=== PATIENT | female | born 1970 | race Caucasian/White ===

== ENCOUNTER 2022-10-06 07:46 | Inpatient (IN) | payer OTHER ==
[2022-10-06] MEDS ORDERED: KETOROLAC 15 MG/ML 1 ML VIAL IVP STA (08:07)
[2022-10-06] MEDS ORDERED: SODIUM CHLORIDE 0.9% 1,000 ML IV STA ×2 (08:07→09:43)
[2022-10-06] MEDS ORDERED: MORPHINE SULFATE 2 MG/ML SYRINGE IVP STA (08:07)
[2022-10-06] MEDS ORDERED: ONDANSETRON 4 MG/2 ML VIAL IVP STA (08:07)
--- NOTE | 2022-10-06 08:13 | ED ---
Abdominal Pain HPI - General Chief Complaint: Abdominal Pain Stated Complaint: Abd pain Time Seen by Provider: 10/06/22 07:56 Source: patient, RN notes reviewed Mode of arrival: ambulatory Limitations: no limitations - History of Present Illness Initial Comments: This is a 52-year-old female who presents to the emergency department for abdominal pain. States that this is in the epigastric region has been present over the last 3 days. She has associated nausea and vomiting. States that she is unable to sleep at night. Last night she took 1500mg of Tylenol with no relief in symptoms. She had a similar problem approximately 3 weeks ago that resolved on its own. She does have a family history of gallstones. She also notes that she changed her diet about a month ago and it is now higher in fat. States that the vomit is primarily bile. Denies any blood in the vomit, diarrhea, or constipation. Denies any fevers, chills, sore throat, cough, dyspnea, chest pain, palpitations, diarrhea, back pain, or headaches. MD Complaint: abdominal pain Onset/Timin -: days(s) Location: RUQ, epigastric Associated Symptoms: nausea, vomiting - Related Data Home Medications Medication Instructions Recorded Confirmed No Known Home Medications 10/06/22 10/06/22 Allergies Allergy/AdvReac Type Severity Reaction Status Date / Time amoxicillin Allergy Anaphylaxis Verified 10/06/22 10:13 Penicillins Allergy Anaphylaxis Verified 10/06/22 10:13 Review of Systems ROS Statement: Those systems with pertinent positive or pertinent negative responses have been documented in the HPI. ROS Other: All systems not noted in ROS Statement are negative. Past Medical History Past Medical History: No Reported History History of Any Multi-Drug Resistant Organisms: None Reported Past Surgical History: No Surgical Hx Reported Past Psychological History: No Psychological Hx Reported Smoking Status: Vaper Past Alcohol Use History: None Reported Past Drug Use History: None Reported General Exam Limitations: no limitations General appearance: alert, in distress Head exam: Present: atraumatic, normocephalic, normal inspection Respiratory exam: Present: normal lung sounds bilaterally. Absent: respiratory distress, wheezes, rales, rhonchi, stridor Cardiovascular Exam: Present: regular rate, normal rhythm, normal heart sounds. Absent: systolic murmur, diastolic murmur, rubs, gallop, clicks GI/Abdominal exam: Present: soft, tenderness (Epigastric, worse in the RUQ), normal bowel sounds. Absent: distended Neurological exam: Present: alert, oriented X3, CN II-XII intact Psychiatric exam: Present: normal affect, normal mood Skin exam: Present: warm, dry, intact, normal color. Absent: rash Course Vital Signs 10/06/22 07:50 Temperature 98.4 F Pulse Rate 70 Respiratory 20 Rate Blood Pressure 128/84 O2 Sat by Pulse 99 Oximetry Medical Decision Making - Medical Decision Making This is a 52-year-old female who presents to the emergency department for abdominal pain. Was pt. sent in by a medical professional or institution? @ -No Did you speak to anyone other than the patient for history? @ -Her friend Did you review nursing and triage notes? @ -Yes, and I agree, it is accurate with regards to the patient's symptoms. Were old charts reviewed? @ -No Differential Diagnosis? @ -Differential Abdominal Pain Women: Appendicitis, Cholecystitis, diverticulosis, ischemic bowel, pancreatitis, hepatitis, UTI, gastroenteritis, AAA, incarcerated hernia, bowel obstruction, constipation, inflammatory bowel, hepatitis, peptic ulcer disease, splenic infarction, perforated viscus, vulvitis, ovarian torsion, PID, kidney stone, placenta abruption, this is not meant to be an all-inclusive list EKG interpreted by me (1pt min.)? @ -Sinus rhythm. Ventricular rate 61 bpm, HI interval 141 ms, QRS duration 98 ms, QTC 433 ms. U/S interpreted by me (1pt. min.)? @ -Ultrasound of the gallbladder obtained. My interpretation identifies gallbladder wall thickening and sludge. What testing was considered but not performed? (CT, X-rays, U/S, labs)? Why? @ -None What meds were considered but not given? Why? @ -None Did you discuss the management of the patient with other professionals? @ -Yes, Dr. Pérez who is agreeable to admission. Did you reconcile home meds? @ -No Was smoking cessation discussed for >3mins.? @ -No Was critical care preformed (if so, how long)? @ -No Were there social determinants of health that impacted care today? How? (Homelessness, low income, unemployed, alcoholism, drug addiction, transportation, low edu. Level, literacy, decrease access to med. care, prison, rehab)? @ -No Was there de-escalation of care discussed even if they declined? (Discuss DNR or withdrawal of care, Hospice)? @ -No What co-morbidities impacted this encounter? (DM, HTN, Smoking, COPD, CAD, Cancer, CVA, Hep., AIDS, mental health diagnosis, sleep apnea, morbid obesity)? @ -Morbid obesity Was patient admitted / discharged? @ -Lab work obtained revealing leukocytosis and a minor increase in alkaline phosphatase. Symptoms well controlled with IV fluids, Zofran, Toradol, and Morphine. Ultrasound of the gallbladder obtained and findings consistent with an acute cholecystitis. They were unable to rule out an early biliary obstruction and advised correlation with alkaline phosphatase. Case discussed with Dr. Pérez, who is agreeable to admission given that she only has a minor elevation in alkaline phosphatase. Patient admitted to general surgery with plan for surgical intervention. She was started on maintenance fluids, Levaquin, and Flagyl due to penicillin allergy. Blood cultures were obtained prior to antibiotic administration. Undiagnosed new problem with uncertain prognosis? @ -None Drug Therapy requiring intensive monitoring for toxicity (Heparin, Nitro, Insulin, Cardizem)? @ -None Were any procedures done? @ -None Diagnosis/symptom? @ -Acute cholecystitis Acute, or Chronic, or Acute on Chronic? @ -Acute Uncomplicated (without systemic symptoms) or Complicated (systemic symptoms)? @ -Complicated Side effects of treatment? @ -None Exacerbation, Progression, or Severe Exacerbation] @ -Not applicable Poses a threat to life or bodily function? @ -Yes This case was discussed in detail with the attending ED physician, Dr. العراقي. Presentation, findings, and treatment plan discussed in detail as well. - Lab Data Result diagrams: 10/06/22 08:30 10/06/22 08:30 Lab Results 10/06/22 10/06/22 10/06/22 Range/Units 08:30 08:30 08:30 WBC 15.2 H (3.8-10.6) k/uL RBC 4.57 (3.80-5.40) m/uL Hgb 13.9 (11.4-16.0) gm/dL Hct 43.1 (34.0-46.0) % MCV 94.3 (80.0-100.0) fL MCH 30.4 (25.0-35.0) pg MCHC 32.3 (31.0-37.0) g/dL RDW 13.2 (11.5-15.5) % Plt Count 284 (150-450) k/uL MPV 10.6 Neutrophils % 88 % Lymphocytes % 5 % Monocytes % 5 % Eosinophils % 1 % Basophils % 0 % Neutrophils # 13.4 H (1.3-7.7) k/uL Lymphocytes # 0.8 L (1.0-4.8) k/uL Monocytes # 0.8 (0-1.0) k/uL Eosinophils # 0.1 (0-0.7) k/uL Basophils # 0.1 (0-0.2) k/uL PT 10.8 (9.0-12.0) sec INR 1.0 (<1.2) APTT 24.1 (22.0-30.0) sec Sodium (137-145) mmol/L Potassium (3.5-5.1) mmol/L Chloride (98-107) mmol/L Carbon Dioxide (22-30) mmol/L Anion Gap mmol/L BUN (7-17) mg/dL Creatinine (0.52-1.04) mg/dL Est GFR (CKD-EPI)AfAm (>60 ml/min/1.73 sqM) Est GFR (CKD-EPI)NonAf (>60 ml/min/1.73 sqM) Glucose (74-99) mg/dL Plasma Lactic Acid Tray (0.7-2.0) mmol/L Calcium (8.4-10.2) mg/dL Total Bilirubin (0.2-1.3) mg/dL AST (14-36) U/L ALT (4-34) U/L Alkaline Phosphatase (38-126) U/L Troponin I (0.000-0.034) ng/mL Total Protein (6.3-8.2) g/dL Albumin (3.5-5.0) g/dL Amylase (30-110) U/L Lipase (23-300) U/L Urine Color Yellow Urine Appearance Clear (Clear) Urine pH 5.5 (5.0-8.0) Ur Specific [place] 1.035 (1.001-1.035) Urine Protein 1+ H (Negative) Urine Glucose (UA) Negative (Negative) Urine Ketones 4+ H (Negative) Urine Blood Negative (Negative) Urine Nitrite Negative (Negative) Urine Bilirubin Negative (Negative) Urine Urobilinogen 2.0 (<2.0) mg/dL Ur Leukocyte Esterase Negative (Negative) Urine RBC 2 (0-5) /hpf Urine WBC 2 (0-5) /hpf Ur Squamous Epith Cells 5 H (0-4) /hpf Urine Bacteria Rare H (None) /hpf Hyaline Casts 28 H (0-2) /lpf Urine Mucus Many H (None) /hpf 10/06/22 10/06/22 10/06/22 Range/Units 08:30 08:30 08:30 WBC (3.8-10.6) k/uL RBC (3.80-5.40) m/uL Hgb (11.4-16.0) gm/dL Hct (34.0-46.0) % MCV (80.0-100.0) fL MCH (25.0-35.0) pg MCHC (31.0-37.0) g/dL RDW (11.5-15.5) % Plt Count (150-450) k/uL MPV Neutrophils % % Lymphocytes % % Monocytes % % Eosinophils % % Basophils % % Neutrophils # (1.3-7.7) k/uL Lymphocytes # (1.0-4.8) k/uL Monocytes # (0-1.0) k/uL Eosinophils # (0-0.7) k/uL Basophils # (0-0.2) k/uL PT (9.0-12.0) sec INR (<1.2) APTT (22.0-30.0) sec Sodium 135 L (137-145) mmol/L Potassium 4.3 (3.5-5.1) mmol/L Chloride 97 L (98-107) mmol/L Carbon Dioxide 23 (22-30) mmol/L Anion Gap 15 mmol/L BUN 9 (7-17) mg/dL Creatinine 0.44 L (0.52-1.04) mg/dL Est GFR (CKD-EPI)AfAm >90 (>60 ml/min/1.73 sqM) Est GFR (CKD-EPI)NonAf >90 (>60 ml/min/1.73 sqM) Glucose 140 H (74-99) mg/dL Plasma Lactic Acid Tray 1.5 (0.7-2.0) mmol/L Calcium 9.5 (8.4-10.2) mg/dL Total Bilirubin 0.9 (0.2-1.3) mg/dL AST 28 (14-36) U/L ALT 30 (4-34) U/L Alkaline Phosphatase 144 H (38-126) U/L Troponin I <0.012 (0.000-0.034) ng/mL Total Protein 7.4 (6.3-8.2) g/dL Albumin 4.2 (3.5-5.0) g/dL Amylase 71 (30-110) U/L Lipase 88 (23-300) U/L Urine Color Urine Appearance (Clear) Urine pH (5.0-8.0) Ur Specific [place] (1.001-1.035) Urine Protein (Negative) Urine Glucose (UA) (Negative) Urine Ketones (Negative) Urine Blood (Negative) Urine Nitrite (Negative) Urine Bilirubin (Negative) Urine Urobilinogen (<2.0) mg/dL Ur Leukocyte Esterase (Negative) Urine RBC (0-5) /hpf Urine WBC (0-5) /hpf Ur Squamous Epith Cells (0-4) /hpf Urine Bacteria (None) /hpf Hyaline Casts (0-2) /lpf Urine Mucus (None) /hpf - Radiology Data Radiology results: report reviewed, image reviewed Disposition Clinical Impression: Acute cholecystitis Disposition: ADMITTED IP TO THIS [facility] Referrals: None,Stated [Primary Care Provider] - 1-2 days
[2022-10-06 08:57] LABS: Basophils # (A) 0.1 k/uL (0-0.2); Basophils % (A) 0 %; Eosinophils # (A) 0.1 k/uL (0-0.7); Eosinophils % (A) 1 %; HCT 43.1 % (34.0-46.0); HGB 13.9 gm/dL (11.4-16.0); Lymphocytes # (A) 0.8 k/uL (1.0-4.8); Lymphocytes % (A) 5 %; MCH 30.4 pg (25.0-35.0); MCHC 32.3 g/dL (31.0-37.0); MCV 94.3 fL (80.0-100.0); Mean Platelet Volume 10.6; Monocytes # (A) 0.8 k/uL (0-1.0); Monocytes % (A) 5 %; Neutrophils # (A) 13.4 k/uL (1.3-7.7); Neutrophils % (A) 88 %; Platelet Count 284 k/uL (150-450); RBC 4.57 m/uL (3.80-5.40); RDW 13.2 % (11.5-15.5); WBC 15.2 k/uL (3.8-10.6)
[2022-10-06 09:15] LABS: ALT 30 U/L (4-34); AST 28 U/L (14-36); African American GFR (CKD) >90 (>60 ml/min/1.73 sqM); Albumin 4.2 g/dL (3.5-5.0); Alkaline Phosphatase 144 U/L (38-126); Amylase 71 U/L (30-110); Anion Gap 15 mmol/L; Blood Urea Nitrogen 9 mg/dL (7-17); Calcium 9.5 mg/dL (8.4-10.2); Carbon Dioxide 23 mmol/L (22-30); Chloride 97 mmol/L (98-107); Glucose 140 mg/dL (74-99); Lipase 88 U/L (23-300); Non-African American GFR(CKD) >90 (>60 ml/min/1.73 sqM); Partial Thromboplastin Time 24.1 sec (22.0-30.0); Potassium 4.3 mmol/L (3.5-5.1); Prothrombin Time 10.8 sec (9.0-12.0); Sodium 135 mmol/L (137-145); Total Bilirubin 0.9 mg/dL (0.2-1.3); Total Protein 7.4 g/dL (6.3-8.2)
--- NOTE | 2022-10-06 09:32 | US ---
EXAMINATION TYPE: US gallbladder DATE OF EXAM: 10/06/2022 COMPARISON: NONE CLINICAL HISTORY: 52-year-old female Epigastric pain, N/V. Intermittent RUQ pain and N/V x 3 months t hat has gotten worse in the past 3 days TECHNIQUE: Multiple sonographic images of the right upper quadrant are obtained. FINDINGS: EXAM MEASUREMENTS: Liver Length: 12.9 cm Gallbladder Wall: 1.1 cm CBD: 0.7 cm Right Kidney: 10.9 x 5.1 x 4.7 cm Pancreas: Only a small portion of the pancreatic head and neck are seen. Remainder obscured by bowel gas shadowing. Liver: wnl Gallbladder: borderline hydropic, thickened heterogeneous wall with calcifications and some vascular ity, sludge and a 2.1cm non mobile stone seen within neck Evidence for sonographic Tony's sign: yes CBD: dilated Right Kidney: wnl IMPRESSION: 1. Thickened and edematous gallbladder wall. There is sludge and an impacted 2.1 cm stone at the neck of the gallbladder. Sonographic Tony's sign is reportedly positive. Sonographic findings compatibl e with acute cholecystitis. 2. Either concurrent adenomyomatosis versus gallbladder wall calcification/porcelain gallbladder sigala ges. 3. Bile duct is borderline to mildly dilated at 7 mm. Correlate with alkaline phosphatase and bilirub in levels to exclude early biliary obstruction.
[2022-10-06] MEDS ORDERED: ONDANSETRON 4 MG/2 ML VIAL IVP PRN (09:50)
[2022-10-06] MEDS ORDERED: NALOXONE 0.4 MG/ML 1 ML VIAL IV PRN (09:50)
[2022-10-06] MEDS ORDERED: IBUPROFEN 400 MG TAB PO PRN (09:50)
[2022-10-06] MEDS ORDERED: ACETAMINOPHEN TAB 325 MG TAB PO PRN (09:50)
[2022-10-06 10:00] LABS: Appearance,Urine Clear (Clear); Bacteria,Urine Rare /hpf; Bilirubin,Urine Negative (Negative); Blood,Urine Negative (Negative); Color,Urine Yellow; Glucose,Urine (UA) Negative (Negative); Hyaline Casts,Urine 28 /lpf (0-2); Ketones,Urine 4+ (Negative); Leukocyte Esterase,Urine Negative (Negative); Mucus,Urine Many /hpf; Nitrite,Urine Negative (Negative); PH, Urine 5.5 (5.0-8.0); Protein,Urine 1+ (Negative); RBC,Urine 2 /hpf (0-5); Specific Gravity,Urine 1.035 (1.001-1.035); Squamous Epithelial Cell,Urine 5 /hpf (0-4); WBC,Urine 2 /hpf (0-5)
[2022-10-06] MEDS: HYDROmorphone 1 MG/ML 1 ML SYRINGE IVP PRN (10:29)
[2022-10-06] MEDS: metroNIDAZOLE-NS PMX 500 MG in SALINE 1 100ML.BAG IVPB SCH ×2 (10:30→18:03)
[2022-10-06] MEDS: LEVOFLOXACIN 750MG-D5W PMX 750 MG in DEXTROSE/WATER 1 150ML.BAG IVPB SCH (11:40)
--- NOTE | 2022-10-06 11:49 | P.GSHP ---
History of Present Illness H&P Date: 10/06/22 CHIEF COMPLAINT: Abdominal pain HISTORY OF PRESENT ILLNESS: This is a 52-year-old presented with right upper quadrant and epigastric abdominal pain for the last 3 days. She has been having nausea and vomiting. The emesis was bile in color. Patient reports that she has had 2 other episodes of similar pain starting 3 weeks ago. She's had chills and sweats. Denies any fever. Gallbladder bladder ultrasound shows thickened and edematous gallbladder wall. There is sludge and an impacted 2.1 cm stone at the neck of the gallbladder. With positive Tony sign. Patient admitted to the hospital for acute cholecystitis. She has been started on antibiotics. White count elevated. She denies any past surgical history. Denies any cardiac history. Patient reports her pain is better with the IV Dilaudid. PAST MEDICAL HISTORY: See below PAST SURGICAL HISTORY: See below MEDICATIONS: See below ALLERGIES: See below SOCIAL HISTORY: No illicit drug use. Vaping REVIEW OF SYSTEMS: CONSTITUTIONAL: Denies fever or chills. HEENT: Denies blurred vision, vision changes, or eye pain. Denies hemoptysis CARDIOVASCULAR: Denies chest pain or pressure. RESPIRATORY: No shortness of breath. GASTROINTESTINAL: See HPI for pertinent findings HEMATOLOGIC: Denies bleeding disorders. GENITOURINARY: Denies any blood in urine or increased urinary frequency. SKIN: Denies pruitis. Denies rash. PHYSICAL EXAM: VITAL SIGNS: Reviewed GENERAL: Well-developed in no acute distress. HEENT: No sclera icterus. Extraocular movements grossly intact. Moist buccal mucosa. Head is atraumatic, normocephalic. No nasal drainage. ABDOMEN: Soft. Nondistended. Tenderness to palpation right upper quadrant NEUROLOGIC: Alert and oriented. Cranial nerves II through XII grossly intact. LABORATORY DATA: WBC is 15.2 Hgb 13.9 platelets 284 Sodium is 135 potassium 4.3 creatinine 0.44 Lactic acid 1.5 total bili 0.9 AST 28 ALT 30 alk phos 144 Lipase 88 Troponin negative Urinalysis negative for infection IMAGING: Gallbladder ultrasound shows thickened and edematous gallbladder wall. There is sludge in an impacted 2.1 cm stone at the neck of the gallbladder. Positive Tony sign. Sonographic findings are compatible with acute cholecystitis. Either concurrent adenomyomatosis versus gallbladder wall calcification/porcelain gallbladder changes. Bile duct is borderline mildly dilated at 7 mm. ASSESSMENT: 1. Acute cholecystitis PLAN: -Patient is scheduled for laparoscopic cholecystectomy tomorrow with Dr. gomez -Start clear liquid diet today -Nothing by mouth after midnight -Continue IV antibiotics -Continue IV fluids -Continue pain medicine and antiemetics as needed Physician Chin Strap Sewer note has been reviewed by physician. Signing provider agrees with the documented findings, assessment, and plan of care. Past Medical History Past Medical History: No Reported History History of Any Multi-Drug Resistant Organisms: None Reported Past Surgical History: No Surgical Hx Reported Past Psychological History: No Psychological Hx Reported Smoking Status: Vaper Past Alcohol Use History: None Reported Past Drug Use History: None Reported Medications and Allergies Home Medications Medication Instructions Recorded Confirmed Type No Known Home Medications 10/06/22 10/06/22 History Allergies Allergy/AdvReac Type Severity Reaction Status Date / Time amoxicillin Allergy Anaphylaxis Verified 10/06/22 10:13 Penicillins Allergy Anaphylaxis Verified 10/06/22 10:13 Surgical - Exam Vital Signs Temp Pulse Resp BP Pulse Ox 98.4 F 70 20 128/84 99 10/06/22 07:50 10/06/22 07:50 10/06/22 07:50 10/06/22 07:50 10/06/22 07:50 Results - Labs 10/06/22 08:30 10/06/22 08:30 Abnormal Lab Results - Last 24 Hours (Table) 10/06/22 10/06/22 10/06/22 Range/Units 08:30 08:30 08:30 WBC 15.2 H (3.8-10.6) k/uL Neutrophils # 13.4 H (1.3-7.7) k/uL Lymphocytes # 0.8 L (1.0-4.8) k/uL Sodium 135 L (137-145) mmol/L Chloride 97 L (98-107) mmol/L Creatinine 0.44 L (0.52-1.04) mg/dL Glucose 140 H (74-99) mg/dL Alkaline Phosphatase 144 H (38-126) U/L Urine Protein 1+ H (Negative) Urine Ketones 4+ H (Negative) Ur Squamous Epith Cells 5 H (0-4) /hpf Urine Bacteria Rare H (None) /hpf Hyaline Casts 28 H (0-2) /lpf Urine Mucus Many H (None) /hpf Diabetes panel 10/06/22 Range/Units 08:30 Sodium 135 L (137-145) mmol/L Potassium 4.3 (3.5-5.1) mmol/L Chloride 97 L (98-107) mmol/L Carbon Dioxide 23 (22-30) mmol/L BUN 9 (7-17) mg/dL Creatinine 0.44 L (0.52-1.04) mg/dL Glucose 140 H (74-99) mg/dL Calcium 9.5 (8.4-10.2) mg/dL AST 28 (14-36) U/L ALT 30 (4-34) U/L Alkaline Phosphatase 144 H (38-126) U/L Total Protein 7.4 (6.3-8.2) g/dL Albumin 4.2 (3.5-5.0) g/dL Calcium panel 10/06/22 Range/Units 08:30 Calcium 9.5 (8.4-10.2) mg/dL Albumin 4.2 (3.5-5.0) g/dL Pituitary panel 10/06/22 Range/Units 08:30 Sodium 135 L (137-145) mmol/L Potassium 4.3 (3.5-5.1) mmol/L Chloride 97 L (98-107) mmol/L Carbon Dioxide 23 (22-30) mmol/L BUN 9 (7-17) mg/dL Creatinine 0.44 L (0.52-1.04) mg/dL Glucose 140 H (74-99) mg/dL Calcium 9.5 (8.4-10.2) mg/dL Adrenal panel 10/06/22 Range/Units 08:30 Sodium 135 L (137-145) mmol/L Potassium 4.3 (3.5-5.1) mmol/L Chloride 97 L (98-107) mmol/L Carbon Dioxide 23 (22-30) mmol/L BUN 9 (7-17) mg/dL Creatinine 0.44 L (0.52-1.04) mg/dL Glucose 140 H (74-99) mg/dL Calcium 9.5 (8.4-10.2) mg/dL Total Bilirubin 0.9 (0.2-1.3) mg/dL AST 28 (14-36) U/L ALT 30 (4-34) U/L Alkaline Phosphatase 144 H (38-126) U/L Total Protein 7.4 (6.3-8.2) g/dL Albumin 4.2 (3.5-5.0) g/dL
[2022-10-06] MEDS: HYDROmorphone 0.5 MG/0.5 ML SYRINGE IVP PRN ×3 (13:43→22:13)
[2022-10-06] MEDS: LACTATED RINGERS 1,000 ML IV SCH (16:46)
[2022-10-07] MEDS: metroNIDAZOLE-NS PMX 500 MG in SALINE 1 100ML.BAG IVPB SCH ×3 (03:01→18:02)
[2022-10-07] MEDS: HYDROmorphone 0.5 MG/0.5 ML SYRINGE IVP PRN (03:27)
[2022-10-07 06:57] LABS: Basophils % (A) 0 %; Eosinophils % (A) 0 %; HCT 40.1 % (34.0-46.0); HGB 12.7 gm/dL (11.4-16.0); Lymphocytes # (A) 0.8 k/uL (1.0-4.8); Lymphocytes % (A) 6 %; MCH 30.3 pg (25.0-35.0); MCHC 31.6 g/dL (31.0-37.0); MCV 95.8 fL (80.0-100.0); Mean Platelet Volume 10.2; Monocytes % (A) 8 %; Neutrophils # (A) 10.5 k/uL (1.3-7.7); Neutrophils % (A) 85 %; Platelet Count 237 k/uL (150-450); RBC 4.18 m/uL (3.80-5.40); RDW 13.3 % (11.5-15.5); WBC 12.4 k/uL (3.8-10.6)
[2022-10-07 07:12] LABS: ALT 46 U/L (4-34); AST 43 U/L (14-36); African American GFR (CKD) >90 (>60 ml/min/1.73 sqM); Albumin 3.1 g/dL (3.5-5.0); Albumin/Globulin Ratio 1.1; Alkaline Phosphatase 125 U/L (38-126); Anion Gap 8 mmol/L; Blood Urea Nitrogen 5 mg/dL (7-17); Calcium 8.8 mg/dL (8.4-10.2); Carbon Dioxide 26 mmol/L (22-30); Chloride 101 mmol/L (98-107); Globulin 2.7 g/dL; Glucose 102 mg/dL (74-99); Non-African American GFR(CKD) >90 (>60 ml/min/1.73 sqM); Potassium 3.9 mmol/L (3.5-5.1); Sodium 135 mmol/L (137-145); Total Bilirubin 1.5 mg/dL (0.2-1.3); Total Protein 5.8 g/dL (6.3-8.2)
[2022-10-07] MEDS: HYDROmorphone 1 MG/ML 1 ML SYRINGE IVP PRN ×2 (07:48→11:18)
[2022-10-07] MEDS: SODIUM CHLORIDE 0.9% 1,000 ML IV SCH ×2 (09:13→16:38)
[2022-10-07] MEDS: LEVOFLOXACIN 750MG-D5W PMX 750 MG in DEXTROSE/WATER 1 150ML.BAG IVPB SCH (11:18)
[2022-10-07] MEDS ORDERED: IV FLUID CONTINUATION 1,000 ML IV ONE (12:05)
[2022-10-07] MEDS ORDERED: HEPARIN SODIUM,PORCINE/PF 5,000 UNIT/0.5 ML SYRINGE SQ ONE (12:36)
[2022-10-07] MEDS ORDERED: DEXAMETHASONE SOD PHOSPHATE 4 MG/ML 1 ML VIAL IVP ONE (12:38)
[2022-10-07] MEDS ORDERED: HEPARIN SODIUM,PORCINE 5,000 UNIT/ML 1 ML VIAL SQ ONE (12:39)
[2022-10-07] MEDS ORDERED: ONDANSETRON 4 MG/2 ML VIAL IVP ONE (12:39)
[2022-10-07] MEDS ORDERED: PROPOFOL 10 MG/ML 20 ML VIAL IV ONE (12:52)
[2022-10-07] MEDS ORDERED: PHENYLEPHRINE-0.9% NACL SYG 1,000 MCG/10 ML SYRINGE ONE (12:52)
[2022-10-07] MEDS ORDERED: fentaNYL (PF) 50 MCG/ML 2 ML AMP ONE (12:52)
[2022-10-07] MEDS ORDERED: LIDOCAINE 2% INJ 20 MG/ML (2 ML VIAL) ONE (12:52)
[2022-10-07] MEDS ORDERED: ROCURONIUM 10 MG/ML (5 ML VIAL) IV ONE (12:52)
[2022-10-07] MEDS ORDERED: GLYCOPYRROLATE 0.2 MG/ML 2 ML VIAL ONE (12:52)
[2022-10-07] MEDS ORDERED: SUCCINYLCHOLINE CHLORIDE 200 MG/10 ML VIAL IV ONE (12:52)
[2022-10-07] MEDS ORDERED: NEOSTIGMINE 1 MG/ML 10 ML VIAL ONE (12:52)
[2022-10-07] MEDS ORDERED: KETOROLAC 15 MG/ML 1 ML VIAL ONE (12:52)
[2022-10-07] MEDS ORDERED: BUPIVACAIN-EPI 0.25%-1:200,000 30 ML VIAL SQ ONE ×2 (12:52→13:11)
[2022-10-07] MEDS ORDERED: MIDAZOLAM 2 MG/2 ML VIAL ONE (12:52)
[2022-10-07] MEDS ORDERED: LACTATED RINGERS 1,000 ML IV ONE (13:33)
--- NOTE | 2022-10-07 13:52 | P.OP ---
Date of Procedure: 10/07/22 Preoperative Diagnosis: Acute cholecystitis Postoperative Diagnosis: Acute cholecystitis Cholelithiasis Patchy necrosis of the gallbladder Procedure(s) Performed: Laparoscopic cholecystectomy Anesthesia: VIC Surgeon: Derrick Pérez Estimated Blood Loss (ml): 25 Pathology: other (Gallbladder) Condition: stable Operative Findings: Severe inflammation of gallbladder with thickened gallbladder wall Description of Procedure: The patient was placed on the operating table. The patient received a general endotracheal tube anesthesia. The patients abdomen was prepped and draped in the usual sterile fashion. Through an infraumbilical stab incision, the fascia of the anterior abdominal wall was grasped with a pair of Kochers and then the Veress needle was placed in the peritoneal cavity. Position of the Veress needle was confirmed with positive drop test. The abdomen was then insufflated. After adequate insufflation, the 10 mm trocar was placed in the peritoneal cavity. Following this the laparoscope was placed in the peritoneal cavity. The patient was placed in the head-up, right side up position and then a 5 mm trocar was placed in the right lateral and right subcostal position under direct visualization. A 8 mm trocar was placed in the ep igastric position. The gallbladder was grasped in the fundus and infundibulum. Traction on the gallbladder was placed in the lateral and the cephalad positions. The triangle of Calot was visualized.. The cystic duct was bluntly dissected until the union of the cystic duct and common bile duct was seen. A critical view of safety was achieved. The cystic duct was then divided and sealed with the Harmonic scissors. A PDS Endoloop was then placed throughout the cystic duct stump. The cystic artery divided and sealed with the Harmonic scissors. The gallbladder was then removed from the liver bed using Harmonic scissors. The gallbladder was then extracted through the epigastric port site. Operative field was checked for any bleeding spots and Harmonic scissors was used to coagulate the liver bed. The abdomen was irrigated. The trocars were removed. The skin was closed using interrupted 3-0 Vicryl suture. Dermabond dressing were applied. The patient tolerated the procedure well.
[2022-10-07] MEDS ORDERED: HYDROmorphone 1 MG/ML 1 ML SYRINGE IVP PRN (13:53)
[2022-10-07] MEDS ORDERED: ONDANSETRON 4 MG/2 ML VIAL IVP PRN (13:53)
[2022-10-07] MEDS ORDERED: ACETAMINOPHEN IV (For NPO) 1,000 MG in SALINE 1 100ML.BAG IVPB STA (13:53)
[2022-10-07] MEDS: LACTATED RINGERS 1,000 ML IV SCH (16:38)
[2022-10-08] MEDS: SODIUM CHLORIDE 0.9% 1,000 ML IV SCH ×2 (01:01→10:39)
[2022-10-08] MEDS: metroNIDAZOLE-NS PMX 500 MG in SALINE 1 100ML.BAG IVPB SCH ×2 (03:00→10:38)
[2022-10-08] MEDS: HYDROcodone/APAP 7.5-325MG 1 EACH TAB PO PRN ×2 (04:57→10:38)
[2022-10-08 07:47] VITALS: RESP 18; TEMP 98
[2022-10-08 09:02] LABS: Basophils % (A) 0 %; Eosinophils # (A) 0.1 k/uL (0-0.7); Eosinophils % (A) 0 %; HCT 33.5 % (34.0-46.0); HGB 11.5 gm/dL (11.4-16.0); Lymphocytes # (A) 1.1 k/uL (1.0-4.8); Lymphocytes % (A) 9 %; MCH 31.8 pg (25.0-35.0); MCHC 34.3 g/dL (31.0-37.0); MCV 92.9 fL (80.0-100.0); Mean Platelet Volume 10.3; Monocytes # (A) 0.6 k/uL (0-1.0); Monocytes % (A) 5 %; Neutrophils # (A) 9.6 k/uL (1.3-7.7); Neutrophils % (A) 84 %; Platelet Count 245 k/uL (150-450); RBC 3.61 m/uL (3.80-5.40); RDW 13.7 % (11.5-15.5); WBC 11.4 k/uL (3.8-10.6)
[2022-10-08] MEDS: LEVOFLOXACIN 750MG-D5W PMX 750 MG in DEXTROSE/WATER 1 150ML.BAG IVPB SCH (12:59)
--- NOTE | 2022-10-08 13:24 | P.DS ---
Providers Date of admission: 10/06/22 10:49 Expected date of discharge: 10/08/22 Attending physician: Derrick Pérez Primary care physician: Stated None Hospital Course: Discharge diagnosis 1. Acute cholecystitis, cholelithiasis and patchy necrosis of the gallbladder status post laparoscopic cholecystectomy Hospital course This is a 52-year-old female presented with right upper quadrant abdominal pain. Gallbladder bladder ultrasound shows thickened and edematous gallbladder wall. There is sludge and an impacted 2.1 cm stone at the neck of the gallbladder. With positive Tony sign. Patient is status post laparoscopic cholecystectomy for Acute cholecystitis, cholelithiasis and patchy necrosis of the gallbladder. Patient tolerated surgery well. Her pain is controlled. She is tolerating diet. She has been up and ambulating. Incision sites clean dry and intact. She is stable for discharge. Please refer to chart for further details. Physician Sawdust Drier note has been reviewed by physician. Signing provider agrees with the documented findings, assessment, and plan of care. Patient Condition at Discharge: Stable Plan - Discharge Summary New Discharge Prescriptions: New Levofloxacin [Levaquin] 500 mg PO DAILY 10 Days #10 tab Acetaminophen Tab [Tylenol Tab] 650 mg PO Q4H PRN #30 tablet PRN Reason: Pain Ibuprofen [Motrin] 600 mg PO Q8HR PRN #30 tab PRN Reason: Pain oxyCODONE HCL [OxyIR] 5 mg PO Q6H PRN 3 Days #12 tab PRN Reason: Pain Discharge Medication List Acetaminophen Tab [Tylenol Tab] 650 mg PO Q4H PRN #30 tablet 10/08/22 [Rx] Ibuprofen [Motrin] 600 mg PO Q8HR PRN #30 tab 10/08/22 [Rx] Levofloxacin [Levaquin] 500 mg PO DAILY 10 Days #10 tab 10/08/22 [Rx] oxyCODONE HCL [OxyIR] 5 mg PO Q6H PRN 3 Days #12 tab 10/08/22 [Rx] Follow up Appointment(s)/Referral(s): None,Stated [Primary Care Provider] - 1-2 days Derrick Pérez MD [STAFF PHYSICIAN] - 1 Week Activity/Diet/Wound Care/Special Instructions: No driving while taking OxyIR No lifting over 10 pounds Shower daily. No soaking or tub baths for 2 weeks Very light activity until you are reevaluated at your follow up appointment with your surgeon Discharge Disposition: HOME SELF-CARE
[2022-10-08 14:57] VITALS: BP 98/64; PULSE 89
== END 2022-10-08 15:50 | disposition home or self-care (01) | DRG 419 ==
LOC: EC 07:46 → OBSVTOIN 10:49 → 6NMEDSUR 10:49 → UNDODISOB 10-08 15:50
PROVIDERS: ADMIT Surgery; ATTEND Surgery
PROC: 0FT44ZZ Resection of Gallbladder, Percutaneous Endoscopic Approach (ICD-10-PCS; principal; 2022-10-07 12:55)
DX: K80.00 Calculus of gallbladder with acute cholecystitis without obstruction (principal); K82.A1 Gangrene of gallbladder in cholecystitis; Z88.0 Allergy status to penicillin; Z28.310 Unvaccinated for COVID-19
CPT/HCPCS: 36415; 76705; 80053; 81001; 81025; 82150; 83605; 83690; 84484; 85025; 85610; 85730; 87040; 88304; 93005; 96361; 96365; 96366; 96368; 96375; 96376; 99285

== ENCOUNTER → 2023-04-29 | Outpatient (CLI) | payer OTHER ==
--- NOTE | 2023-05-24 12:03 | MM ---
Reason for Exam: Screening (asymptomatic). Patient History: Menarche at age 10. Patient has no children. Postmenopausal. Risk Values: Gillian 5 year model risk: 1.3%. NCI Lifetime model risk: 9.1%. Tissue Density: The breast tissue is heterogeneously dense. This may lower the sensitivity of mammography. Findings: Analyzed By CAD. There is no suspicious group of microcalcifications or new suspicious mass. Overall Assessment: Negative, BI-RAD 1 Management: Screening Mammogram of both breasts in [address] [facility] will attempt to contact patient to return for supplemental views and ultrasound if indicated. Patient should continue monthly self-breast exams. A clinical breast exam by your physician is recommended on an annual basis. This exam should not preclude additional follow-up of suspicious palpable abnormalities. Note on Gillian scores and lifetime risk: 1. A Gillian score greater than 3% is considered moderate risk. If this is the case, consider specialist referral to assess eligibility for a risk reducing agent. 2. If overall lifetime risk for the development of breast cancer is 20% or higher, the patient may qualify for future screening with alternating mammogram and breast MRI. Electronically signed and approved by: Rohit Wilkinson DO
== END | disposition home or self-care (01) ==
LOC: RADMAMWWP 10:17
DX: Z12.31 Encounter for screening mammogram for malignant neoplasm of breast (principal); Z78.0 Asymptomatic menopausal state
CPT/HCPCS: 77063; 77067